=== PATIENT | male | born 1980 | race Two or more races ===

== ENCOUNTER 2016-11-09 15:13 | Emergency (ER) | payer OTHER ==
[2016-11-09 15:22] VITALS: BMI 44.3
--- NOTE | 2016-11-09 15:25 | PDOC ---
Rapid Medical Evaluation Chief Complaint: Chest Pain Time Seen by Provider: 11/09/16 15:19 Medical Evaluation: Allergies Allergy/AdvReac Type Severity Reaction Status Date / Time No Known Allergies Allergy Verified 11/09/16 15:17 11/09/16 15:19 I have performed a brief in-person evaluation of this patient. The patient presents with a chief complaint of: pleuritic chest pain radiating to back. Pt has a h/o asthma w/ recent travel back from the [place] ~3 weeks ago Pertinent physical exam findings:Stable and well patricia w/ clear chest/lungs, no edema I have ordered the following:ekg/trop/cxr/cbc/chem/ua, will defer CTA vs dimer to main ED providers The patient will proceed to the ED for further evaluation. 11/09/16 15:23
[2016-11-09 15:57] LABS: BASOPHIL 0.3 % (0-2.0); EOSINOPHIL 2.3 % (0-4.5); MCH 26.2 pg (25.7-33.7); MCHC 33.3 g/dl (32.0-35.9); MEAN CELL VOLUME 78.7 fl (80-96); MEAN PLT VOLUME 8.2 fl (7.5-11.1); PLATELET COUNT 263 K/MM3 (134-434); RDW 14.7 % (11.9-15.9); WHITE BLOOD COUNT 13.1 K/mm3 (4.0-10.0)
[2016-11-09 16:16] LABS: ALBUMIN 3.7 g/dl (3.4-5.0); ANION GAP 8 (8-16); BILIRUBIN,TOTAL 0.6 mg/dL (0.2-1.0); CALCIUM 9.5 mg/dL (8.5-10.1); CO2 29 mmol/L (21-32); GLUCOSE,RANDOM 86 mg/dL (74-106); SGOT/AST 21 U/L (15-37); SGPT/ALT 37 U/L (12-78); TOT PROT 7.8 g/dl (6.4-8.2)
[2016-11-09 16:19] LABS: ALK PHOS 55 U/L (45-117); TROPONIN I < 0.02 ng/ml (0.00-0.05)
[2016-11-09 16:24] LABS: INR 1.14 (0.82-1.09); PROTHROMBIN TIME (PATIENT) 12.6 SEC (9.98-11.88)
--- NOTE | 2016-11-09 16:33 | PDOC ---
History of Present Illness <Genesis Ashraf - Last Filed: 11/09/16 17:24> <Donna Brand - Last Filed: 11/09/16 18:29> - General Chief Complaint: Chest Pain Stated Complaint: r/o P.E CHEST PAIN/travel Time Seen by Provider: 11/09/16 15:19 - History of Present Illness Initial Comments: 11/09/16 17:17 Patient is a 36 year old male with significant medical hx of asthma who is presenting to the ED with five days of nausea and three days of pleuritic upper back pain and epigastric pain. Five days ago the patient reportedly ate strange food and afterwards developed persistent nausea and one episode of vomiting. He states that since then, he's had persistent recurrent waves of nausea. Three days ago the patient began having some epigastric pain which radiates up to his lower sternum. He also began having pleuritic upper back pain that radiates between his shoulder blades. The patient denies any fever, chills, shortness of breath, diarrhea, headache, dizziness, lightheadedness, palpitations, or urinary complaints. (Genesis Ashraf) Past History <Genesis Ashraf - Last Filed: 11/09/16 17:24> - Past Medical History Asthma: Yes - Psycho/Social/Smoking Cessation Hx Anxiety: No Suicidal Ideation: No Smoking Status: No Smoking History: Never smoked Have you smoked in the past 12 months: No Number of Cigarettes Smoked Daily: 0 Information on smoking cessation initiated: No Hx Alcohol Use: No Drug/Substance Use Hx: No Substance Use Type: None <Donna Brand - Last Filed: 11/09/16 18:29> - Past Medical History Allergies/Adverse Reactions: Allergies Allergy/AdvReac Type Severity Reaction Status Date / Time shellfish derived Allergy Verified 11/09/16 16:10 Home Medications: Ambulatory Orders Albuterol Sulfate Inhaler - [Ventolin Hfa Inhaler -] 2 inh PO Q4H 11/09/16 Pantoprazole Sodium [Protonix -] 40 mg PO DAILY #7 tablet.ec 11/09/16 Review of Systems <Genesis Ashraf - Last Filed: 11/09/16 17:24> <Donna Brand - Last Filed: 11/09/16 18:29> - Review of Systems Comments:: 11/09/16 17:21 CONSTITUTIONAL: Absent: fever, chills, diaphoresis, generalized weakness, malaise, loss of appetite HEENT: Absent: rhinorrhea, nasal congestion, throat pain, throat swelling, difficulty swallowing, mouth swelling, ear pain, eye pain, visual changes CARDIOVASCULAR: Absent: chest pain, syncope, palpitations, irregular heart rate, lightheadedness , peripheral edema RESPIRATORY: Absent: cough, shortness of breath, dyspnea with exertion, orthopnea, wheezing, stridor, hemoptysis GASTROINTESTINAL: Present: nausea, vomiting, epigastric pain Absent: abdominal distension, diarrhea, constipation, melena, hematochezia GENITOURINARY: Absent: dysuria, frequency, urgency, hesitancy, hematuria, flank pain, genital pain MUSCULOSKELETAL: Present: pleuritic upper back pain Absent: myalgia, arthralgia, joint swelling SKIN: Absent: rash, itching, pallor HEMATOLOGIC/IMMUNOLOGIC: Absent: easy bleeding, easy bruising, lymphadenopathy, frequent infections ENDOCRINE: Absent: unexplained weight gain, unexplained weight loss, heat intolerance, cold intolerance NEUROLOGIC: Absent: headache, focal weakness or paresthesia, dizziness, unsteady gait, seizure, mental status changes, bladder or bowel incontinence. PSYCHIATRIC: Absent: anxiety, depression, suicidal or homicidal ideation, hallucinations (Genesis Ashraf) *Physical Exam <Genesis Ashraf - Last Filed: 11/09/16 17:24> <Donna Brand - Last Filed: 11/09/16 18:29> - Vital Signs Last Vital Signs Temp Pulse Resp BP Pulse Ox 98.5 F 90 16 150/85 98 11/09/16 15:18 11/09/16 15:18 11/09/16 15:18 11/09/16 15:18 11/09/16 16:14 - Physical Exam Comments: 11/09/16 17:22 GENERAL: Obese. Awake and alert. No acute distress. HEENT: Normocephalic, atraumatic. PERRLA, EOMI. No conjunctival pallor. Sclera are non- icteric. Moist mucous membranes. Oropharynx is clear. NECK: Supple. Full ROM. No JVD. Carotid pulses 2+ and symmetric, without bruits. No thyromegaly. No lymphadenopathy. CARDIOVASCULAR: Regular rate and rhythm. No murmurs, rubs, or gallops. Distal pulses are 2+ and symmetric. PULMONARY: No evidence of respiratory distress. Lungs clear to auscultation bilaterally. No wheezing, rales or rhonchi. ABDOMINAL: Obese abdomen. Soft. Non-tender. Non-distended. No rebound or guarding. No organomegaly. Normoactive bowel sounds. MUSCULOSKELETAL: Normal range of motion at all joints. No bony deformities or tenderness. No CVA tenderness. EXTREMITIES: No cyanosis. No clubbing. No edema. No calf tenderness. SKIN: Warm and dry. Normal capillary refill. No rashes. No jaundice. NEUROLOGICAL: Alert, awake, appropriate. Cranial nerves 2-12 intact. Normal speech. Gait is normal without ataxia. PSYCHIATRIC: Cooperative. Good eye contact. Appropriate mood and affect. (Genesis Ashraf) ED Treatment Course - LABORATORY CBC & Chemistry Diagram: 11/09/16 15:30 11/09/16 15:30 <Genesis Ashraf - Last Filed: 11/09/16 17:24> - LABORATORY CBC & Chemistry Diagram: 11/09/16 15:30 11/09/16 15:30 <Donna Brand - Last Filed: 11/09/16 18:29> - ADDITIONAL ORDERS Additional order review: Laboratory Results 11/09/16 11/09/16 11/09/16 16:40 16:40 16:15 INR D-Dimer < 200 Sodium Potassium Chloride Carbon Dioxide Anion Gap BUN Creatinine Creat Clearance w eGFR Random Glucose Calcium Total Bilirubin AST ALT Alkaline Phosphatase Creatine Kinase Creatine Kinase Index CK-MB (CK-2) CK-MB (CK-2) Rel Index Troponin I Total Protein Albumin Lipase 143 Urine Color Dkyellow Urine Appearance Clear Urine pH 5.0 Urine Protein Negative Urine Glucose (UA) Negative Urine Ketones Negative Urine Blood Negative Urine Nitrite Negative Urine Bilirubin Negative Urine Urobilinogen Negative Ur Leukocyte Esterase Negative 11/09/16 11/09/16 11/09/16 15:30 15:30 15:30 INR 1.14 D-Dimer Sodium 138 Potassium 4.1 Chloride 101 Carbon Dioxide 29 Anion Gap 8 BUN 12 Creatinine 1.0 Creat Clearance w eGFR > 60 Random Glucose 86 Calcium 9.5 Total Bilirubin 0.6 AST 21 ALT 37 Alkaline Phosphatase 55 Creatine Kinase 273 Creatine Kinase Index 0.6 CK-MB (CK-2) 1.689 CK-MB (CK-2) Rel Index Cancelled Troponin I < 0.02 Total Protein 7.8 Albumin 3.7 Lipase Urine Color Urine Appearance Urine pH Urine Protein Urine Glucose (UA) Urine Ketones Urine Blood Urine Nitrite Urine Bilirubin Urine Urobilinogen Ur Leukocyte Esterase 11/09/16 15:30 RBC 5.51 MCV 78.7 L MCHC 33.3 RDW 14.7 MPV 8.2 Neutrophils % 73.0 Lymphocytes % 11.2 Monocytes % 13.2 H Eosinophils % 2.3 Basophils % 0.3 - RADIOLOGY Radiograph Interpretation: 11/09/16 17:24 Chest X-Ray Impression: No acute cardiopulmonary disease is present. Reported By: Cole Cleary MD (Genesis Ashraf) - Medications Given in the ED: ED Medications Discontinued Medications Generic Name Dose Route Start Last Admin Trade Name Arjunq PRN Reason Stop Dose Admin Al Hydroxide/Mg Hydroxide 30 ml 11/09/16 18:06 11/09/16 18:22 Mylanta Oral Suspension - PO 11/09/16 18:07 30 ml ONCE ONE Administration Ranitidine HCl 300 mg 11/09/16 18:06 11/09/16 18:22 Zantac - PO 11/09/16 18:07 300 mg ONCE ONE Administration *DC/Admit/Observation/Transfer <Genesis Ashraf - Last Filed: 11/09/16 17:24> <Donna Brand - Last Filed: 11/09/16 18:29> Diagnosis at time of Disposition: Epigastric abdominal pain, Nausea - Discharge Dispostion Disposition: HOME Condition at time of disposition: Stable - Prescriptions Prescriptions: Pantoprazole Sodium [Protonix -] 40 mg PO DAILY #7 tablet.ec - Patient Instructions Printed Discharge Instructions: DI for Atypical Chest Pain, DI for Epigastric Pain, DI for Gastroesophageal Reflux Disease (GERD) Additional Instructions: please take protonix for the next week picking tech your medications at your pharmacy If you develop chest pain ,upper back pain with dizziness,vomiting-return to the emergency department - Post Discharge Activity Work/School Note: Back to Work - Attestations Scribe Attestion: 11/09/16 17:23 Documentation prepared by Genesis Ashraf, acting as medical record librarian for Donna Brand MD. (Genesis Ashraf)
[2016-11-09 16:40] LABS: URINE APPEARANCE CLEAR; URINE BILIRUBIN NEGATIVE (NEGATIVE); URINE BLOOD NEGATIVE (NEGATIVE); URINE COLOR DKYELLOW; URINE GLUCOSE (UA) NEGATIVE (NEGATIVE); URINE KETONE NEGATIVE (NEGATIVE); URINE LEUK ESTERASE NEGATIVE (NEGATIVE); URINE NITRITE NEGATIVE (NEGATIVE); URINE PROTEIN NEGATIVE (NEGATIVE); URINE UROBILINOGEN NEGATIVE E.U./dl (0.2-1.0)
[2016-11-09] MEDS ORDERED: RANITIDINE HCL 150 MG TABLET (FP) PO ONE (18:06)
[2016-11-09] MEDS ORDERED: MAG HYDROX/AL HYDROX/SIMETH 30 ML UNIT-DOSE CUP PO ONE (18:06)
[2016-11-09] MEDS ORDERED: MAG HYDROX/AL HYDROX/SIMETH 30 ML UNIT-DOSE CUP ONE (18:16)
[2016-11-09] MEDS ORDERED: RANITIDINE HCL 150 MG TABLET (FP) ONE (18:16)
[2016-11-09 18:37] VITALS: BP 121/95; PULSE 84; TEMP 98.4
--- NOTE | 2016-11-10 14:40 | EKG ---
Test Reason : Blood Pressure : / mmHG Vent. Rate : 085 BPM Atrial Rate : 085 BPM P-R Int : 160 ms QRS Dur : 090 ms QT Int : 350 ms P-R-T Axes : 057 035 041 degrees QTc Int : 416 ms NORMAL SINUS RHYTHM NORMAL ECG NO PREVIOUS ECGS AVAILABLE Confirmed by ECTOR BRANCH MD ([id number]) on 11/10/2016 2:40:30 PM Referred By: DALTON Confirmed By:ECTOR BRANCH MD
== END 2016-11-09 18:37 | disposition home or self-care (01) ==
LOC: JER 15:13
DX: R10.13 Epigastric pain (principal); R11.2 Nausea with vomiting, unspecified; J45.909 Unspecified asthma, uncomplicated
CPT/HCPCS: 36415; 71020-TC; 80053; 81003; 82550; 82553; 83690; 84484; 85025; 85379; 85610; 93005; 93010; 99285-25